=== PATIENT | male | born 1990 | race Caucasian/White ===

== ENCOUNTER 2022-12-18 22:12 | Emergency (ER) | payer BC ==
[~2022-12-18 22:12] MED LIST: Iopamidol 370 76% 100 ML VIAL ONE
[2022-12-18] MEDS ORDERED: fentaNYL 50 mcg/mL 1 mL Vial ONE (23:25)
[2022-12-18] MEDS ORDERED: Acetaminophen 500 MG TAB ONE (23:44)
[2022-12-19 00:14] LABS: ALT (SGPT) 19 U/L (8-55); AST (SGOT) 18 U/L (5-34); Albumin 4.2 g/dL (3.5-5.0); Alkaline Phosphatase 49 U/L (40-110); Anion Gap 14 mmol/L (10-20); BUN (Urea Nitrogen) 9 mg/dL (8.9-20.6); Bilirubin, Total 0.9 mg/dL (0.2-1.2); Calc. Creatinine Clearance 0 mL/min (70-130); Calcium 9.5 mg/dL (7.8-10.44); Carbon Dioxide 24 mmol/L (22-29); Chloride 104 mmol/L (98-107); Estimated GFR 106; Globulin 2.8 g/dL (2.4-3.5); Glucose 112 mg/dL (70-105); Potassium 3.9 mmol/L (3.5-5.1); Sodium 138 mmol/L (136-145)
[2022-12-19 00:17] LABS: #Basophils 0.1 thou/uL (0.0-0.2); #Eosinphils 0.1 thou/uL (0.0-0.7); #Lymphocytes 1.3 thou/uL (1.20-3.40); #Monocytes 0.8 thou/uL (0.11-0.59); #Neutrophils 8.5 thou/uL (1.40-6.50); %Basophils 0.5 % (0.0-1.0); %Eosinophils 1.2 % (0.0-10.0); %Lymphocytes 12.4 % (21.0-51.0); %Monocytes 7.3 % (0.0-10.0); %Neutrophils 78.6 % (42.0-75.0); Mean Corpuscular HGB CONC 36.6 g/dL (32.0-36.0); Mean Corpuscular Hemoglobin 33.8 pg (27.0-31.0); Mean Corpuscular Volume 92.4 fl (78.0-98.0); Mean Platelet Volume 9.1 fL (7.4-10.4); Platelet Count 147 10x3/uL (130-400); RBC Distribution Width 11.3 % (11.5-14.5); Red Blood Cell (RBC) Count 4.73 mill/uL (4.70-6.10); White Blood Cell (WBC) Count 10.8 10x3/uL (4.8-10.8)
[2022-12-19] MEDS ORDERED: Ondansetron PF 4 MG/2 ML Vial ONE (01:36)
[2022-12-19] MEDS ORDERED: Morphine 4 MG/ML VIAL ONE (01:36)
== END 2022-12-19 02:08 | disposition home or self-care (01) ==
LOC: ERS 22:12
DX: K64.4 Residual hemorrhoidal skin tags (principal)
CPT/HCPCS: 74177; 80053; 83605; 85025; 96374; 96375; J2270; J2405; J3010; Q9967